=== PATIENT | female | born 1985 | race African-American/Black ===

== ENCOUNTER 2016-04-01 16:13 | Emergency (ER) | payer OTHER ==
[~2016-04-01] VITALS: Ht 157.5 cm; Wt 63.5 kg
[~2016-04-01 16:13] MED LIST: AMOXICILLIN500 MG ORAL; KEFLEX500 MG ORAL; NKM; NORCO 5-325 TA1 EAC1 ORAL; NORCO 5-325 TA1 EACH ORAL; PHENAZOPYRIDIN200 MG ORAL; REGLAN5 MG ORAL; TYLENOL EXTRA500 MG ORAL
[2016-04-01 16:40] VITALS: BP 129/70
[2016-04-01 16:57] LABS: APPEARANCE,URINE CLEAR; KETONES,URINE NEGATIVE (NEGATIVE); LEUKOCYTE ESTERASE ,URINE 1+ (NEGATIVE); NITRITE,URINE NEGATIVE (NEGATIVE); PH,URINE 7 (4.5-8.0); PROTEIN,URINE NEGATIVE (NEGATIVE); UROBILINOGEN,URINE NORMAL MG/DL (0.0-1.0)
[2016-04-01 17:14] LABS: BACTERIA,URINE FEW /HPF; SQUAMOUS EPITHELIAL CELL,UR MODERATE /LPF (NONE/OCC)
[2016-04-01] MEDS ORDERED: KEFLEX500 MG ORAL (17:42)
[2016-04-01] MEDS ORDERED: COLACE100 MG ORAL (17:43)
[2016-04-01 18:10] VITALS: BP 125/65
[2016-04-01 18:28] VITALS: BP 125/65
--- NOTE | 2016-04-02 11:27 | Diagnostic Imaging Report ---
Indication: Abdominal pain Comparison: None Single view of the abdomen obtained Findings: Bowel gas pattern is nonspecific. No mass, ectopic calcifications, or abnormal gas collections are identified. The bones are unremarkable. Impression: No acute findings
--- NOTE | 2016-04-03 07:04 | Emergency Room Report ---
History of Present Illness General Chief Complaint: Abdominal Pain Source: Patient Present Illness HPI Patient is a 30-year-old female presented after increased abdominal pain. Patient reported having prior history of hernia. The patient denied any vomiting. She stated that she been having normal bowel movements. She denied any fever. She stated that she was being referred to a surgeon by her primary care physician. She denied any hematemesis or bloody stool. She reported recently been given prescriptions for a urinary tract infection but did not fill her antibiotics Allergies: Coded Allergies: MORPHINE (Verified Allergy, Intermediate, 04/01/16) Patient History Past Medical History: see triage record Last Menstrual Period: 03/28/16 Now: No Reviewed Nursing Documentation: PMH: Agreed, PSxH: Agreed Nursing Documentation-PMH Past Medical History: No History, Except For Hx Cardiac Problems: Yes - Murmur, PE Review of Systems All Other Systems: negative except mentioned in HPI Physical Exam Vital Signs Date Time Temp Pulse Resp B/P Pulse Ox O2 Delivery O2 Flow Rate FiO2 04/01/16 16:24 98.1 67 15 129/70 98 Room Air Sp02 EP Interpretation: reviewed, normal General Appearance: normal inspection, well appearing, no apparent distress, alert, GCS 15, non-toxic Head: atraumatic ENT: normal ENT inspection, hearing grossly normal, normal voice Neck: normal inspection, full range of motion, supple, no bony tend Respiratory: normal inspection, lungs clear, normal breath sounds, no respiratory distress, no retraction, no wheezing Cardiovascular #1: regular rate, rhythm, no edema Gastrointestinal: normal inspection, normal bowel sounds, non tender, soft, no guarding, no hernia Genitourinary: no CVA tenderness Musculoskeletal: normal inspection, back normal, normal range of motion Neurologic: normal inspection, alert, oriented x3, responsive, 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 Differential diagnoses included ischemic bowel, appendicitis, perforated viscus, abdominal aortic aneurysm, inferior myocardial infarction, viral gastroenteritis Patient's benign exam and does not appear to require any further imaging or laboratory testing at this time. The patient certainly was easily reducible. Patient was noted to have some evidence of urinary tract infection on laboratory testing. Patient is not . The patient is advised to follow up with primary care doctor in 1-2 days. Patient is advised to return if any worsening condition or if any changes in status that are concerning. Labs Test 04/01/16 16:38 Urine Color Pale yellow Urine Appearance Clear Urine pH 7 (4.5-8.0) Urine Specific Chloride 1.000 (1.005-1.035) Urine Protein Negative (NEGATIVE) Urine Glucose (UA) Negative (NEGATIVE) Urine Ketones Negative (NEGATIVE) Urine Occult Blood 1+ (NEGATIVE) Urine Nitrite Negative (NEGATIVE) Urine Bilirubin Negative (NEGATIVE) Urine Urobilinogen Normal MG/DL (0.0-1.0) Urine Leukocyte Esterase 1+ (NEGATIVE) Urine RBC 5-10 /HPF (0 - 2) Urine WBC 10-15 /HPF (0 - 2) Urine Squamous Epithelial Cells Moderate /LPF (NONE/OCC) Urine Bacteria Few /HPF (NONE) Urine HCG, Qualitative Negative Urine Opiates Screen Negative (NEGATIVE) Urine Barbiturates Screen Negative (NEGATIVE) Phencyclidine (PCP) Screen Negative (NEGATIVE) Urine Amphetamines Screen Negative (NEGATIVE) Urine Benzodiazepines Screen Negative (NEGATIVE) Urine Cocaine Screen Negative (NEGATIVE) Urine Marijuana (THC) Screen Positive (NEGATIVE) Last Vital Signs Date Time Temp Pulse Resp B/P Pulse Ox O2 Delivery O2 Flow Rate FiO2 04/01/16 18:28 98.1 75 15 125/65 99 Room Air Status: improved Disposition: HOME, SELF-CARE Condition: Stable Scripts Docusate Sodium* (COLACE*) 100 Mg Capsule 100 MG ORAL TWICE A DAY, #20 CAP Prov: Gary Feldman 04/01/16 Cephalexin* (KEFLEX*) 500 Mg Capsule 500 MG ORAL Q6H, #28 CAP Prov: Gary Feldman 04/01/16 Referrals: [facility] (PCP) Patient Instructions: Abdominal Pain, Adult Gary Feldman Apr 03, 2016 07:04
== END 2016-04-01 18:29 | disposition home or self-care (01) ==
LOC: EMR 17:33
DX: N39.0 Urinary tract infection, site not specified (principal); Z88.6 Allergy status to analgesic agent; Z86.711 Personal history of pulmonary embolism
CPT/HCPCS: 74000; 80300; 81003; 81025; 87086; 99283

== ENCOUNTER 2017-03-19 19:01 | Emergency (ER) | payer OTHER ==
[~2017-03-19] VITALS: Ht 157.5 cm; Wt 70.8 kg
[~2017-03-19 19:01] MED LIST changes: +COLACE100 MG ORAL
[2017-03-19] MEDS ORDERED: ACETAMINOPHEN-1 EAC1 ORAL (19:17)
[2017-03-19 19:25] VITALS: BP 156/82
[2017-03-19] MEDS ORDERED: IBUPROFEN600 MG ORAL (20:13)
[2017-03-19] MEDS ORDERED: FLONASE ALLERG9.9 ML NS (20:13)
[2017-03-19] MEDS ORDERED: SUDAFED 12 HOU120 M1 PO (20:13)
[2017-03-19 20:30] VITALS: BP 156/82
--- NOTE | 2017-03-19 22:37 | Emergency Room Report ---
History of Present Illness General Chief Complaint: Headache Source: Patient Present Illness HPI The patient is a 31-year-old female who denies medical history presenting for nasal congestion, facial pain, headache, and subjective fevers for the past 4 days. She denies any recent travel or known sick contacts. She has not tried any medications yet. She also admits to cough and had one episode of vomiting after coughing today. She denies other symptoms Allergies: Coded Allergies: MORPHINE (Verified Allergy, Intermediate, 04/01/16) Patient History Past Medical History: see triage record Pertinent Family History: none Last Menstrual Period: 03/12/17 Now: No : 2 Para: 2 Reviewed Nursing Documentation: PMH: Agreed, PSxH: Agreed Nursing Documentation-PMH Past Medical History: No History, Except For Hx Cardiac Problems: Yes - Murmur, PE Review of Systems All Other Systems: negative except mentioned in HPI Physical Exam Vital Signs Date Time Temp Pulse Resp B/P (MAP) Pulse Ox O2 Delivery O2 Flow Rate FiO2 03/19/17 19:11 97.9 62 21 156/82 100 Room Air Sp02 EP Interpretation: reviewed, normal General Appearance: no apparent distress, alert, GCS 15, non-toxic Head: normocephalic, atraumatic Eyes: bilateral eye normal inspection, bilateral eye PERRL ENT: hearing grossly normal, no angioedema, normal voice, uvula midline, nasal congestion, other - TTP over bilat maxilalry sinuses Neck: full range of motion, supple, supple/symm/no masses Respiratory: chest non-tender, lungs clear, normal breath sounds, speaking full sentences Cardiovascular #1: regular rate, rhythm, no edema Musculoskeletal: back normal, gait/station normal, normal range of motion, non- tender Neurologic: alert, oriented x3, responsive, motor strength/tone normal, sensory intact, speech normal Psychiatric: judgement/insight normal, memory normal, mood/affect normal, no suicidal/homicidal ideation Skin: normal color, no rash, warm/dry, well hydrated Lymphatic: no adenopathy Medical Decision Making PA Attestation Dr. Wilkerson is my supervising physician. Patient management was discussed with my supervising physician Diagnostic Impression: Primary Impression: Sinusitis, acute Qualified Codes: J01.00 - Acute maxillary sinusitis, unspecified ER Course The patient is a 31-year-old female who denies medical history presenting for nasal congestion, facial pain, headache Differential diagnosis include but not limited to pharyngitis, sinusitis, AOM, bronchitis, PNA, migraine, among others PE: Afebrile. NAD HEENT: Nasal congestion with TTP over maxillary sinuses. Otherwise unremarkable She is DC'ed home with prescriptions for Flonase, Sudafed, and motrin Last Vital Signs Date Time Temp Pulse Resp B/P (MAP) Pulse Ox O2 Delivery O2 Flow Rate FiO2 03/19/17 19:11 97.9 62 21 156/82 100 Room Air Status: improved Disposition: HOME, SELF-CARE Condition: Improved Scripts Ibuprofen* (MOTRIN*) 600 Mg Tablet 600 MG ORAL Q8H Y for For Pain, #30 TAB 0 Refills Prov: CEDRICK CLARKE.A. 03/19/17 Pseudoephedrine Hcl (SUDAFED 12 HOUR) 120 Mg Tablet.er 120 MG PO Q12HR, #20 TAB Prov: CEDRICK CLARKE.A. 03/19/17 Fluticasone Propionate (Flonase Allergy Relief) 9.9 Ml [place].susp 1 SPRAYS NS DAILY, #10 ML Prov: CEDRICK CLARKE P.A. 03/19/17 Referrals: [facility] (PCP) Patient Instructions: Sinus Headache Additional Instructions: I discussed my findings with the patient. All questions and concerns have been answered. Treatment and medication compliance have been addressed. I advised the patient that they need to follow up with PMD in 3-5 days. Return to ED if symptoms worsen, new symptoms arise, or if needed for any reason. Patient verbalized understanding of discharge instructions. CEDRICK CLARKE Mar 19, 2017 22:37
== END 2017-03-19 20:30 | disposition home or self-care (01) ==
LOC: EMR 19:45
DX: J01.00 Acute maxillary sinusitis, unspecified (principal); R01.1 Cardiac murmur, unspecified; Z86.711 Personal history of pulmonary embolism; Z88.6 Allergy status to analgesic agent
CPT/HCPCS: 99284